=== PATIENT | female | born 1980 | race Caucasian/White ===

== ENCOUNTER 2021-02-12 17:22 | Emergency (ER) | payer OTHER ==
[~2021-02-12] VITALS: Ht 167.6 cm; Wt 90.9 kg
[2021-02-12 18:03] VITALS: BP 160/106
[2021-02-12] MEDS ORDERED: MELO15TA23 PO (20:18)
--- NOTE | 2021-02-12 20:18 | ED.ADGEN ---
Past Medical History Past Medical History: No Pertinent History Past Surgical History: No Surgical History Smoking Status: Current Every Day Smoker Alcohol Use: Occasionally General Adult EDM: Chief Complaint: SHOULDER INJURY HPI: HPI: Patient is a 40 year old female, accompanied by her family, who presents emergency department with complaints of intermittent right shoulder pain for the last year after an injury that occurred while working at [employer]. Patient states that over the last few days her pain has become more constant. She reports that the pain in her shoulder increases with movement, she denies any numbness, tingling, or weakness of the affected extremity. She currently rates pain 2 out of 10 on the pain scale, patient states that the pain increases whenever she moves her shoulder. She denies any alleviating factors. Review of Systems: Review of Systems: Complete ROS is negative unless otherwise noted in HPI. Allergies: Allergies: Allergies Coded Allergies Type Severity Reaction Last Updated Verified No Known Drug Allergies 02/12/21 No Physical Exam: PE: See Above Constitutional: Well developed, well nourished, no acute distress, non-toxic appearance. [] HENT: Normocephalic, atraumatic, bilateral external ears normal, nose normal. [] Eyes: PERRLA, EOMI, conjunctiva normal, no discharge. [] Neck: Normal range of motion, no stridor. [] Cardiovascular:Heart rate regular rhythm Lungs & Thorax: Respirations even and unlabored, no retractions, no respiratory distress Skin: Warm, dry, no erythema, no rash. [] Extremities: Right shoulder: No obvious deformity, no swelling, no cyanosis, ROM intact, patient complains of pain with ROM, no edema. [] Neurologic: Alert and oriented X 3, no focal deficits noted. [] Psychologic: Affect normal, judgement normal, mood normal. [] Current Patient Data: Vital Signs: Vital Signs Date Time Temp Pulse Resp B/P (MAP) Pulse Ox O2 Delivery O2 Flow Rate FiO2 02/12/21 18:03 97.9 87 20 160/106 (124) 97 Room Air 97.9 EKG: EKG: [] Heart Score: C/O Chest Pain: No Risk Scores: Score 0 - 3: 2.5% MACE over next 6 weeks - Discharge Home Score 4 - 6: 20.3% MACE over next 6 weeks - Admit for Clinical Observation Score 7 - 10: 72.7% MACE over next 6 weeks - Early Invasive Strategies Radiology/Procedures: Radiology/Procedures: PROCEDURE: SHOULDER 2+V RIGHT Right shoulder 3 views: Reason for examination: Right shoulder pain. No fracture or dislocation is seen. The bone density is normal. No abnormal periosteal reaction is seen. Joint spaces are maintained. IMPRESSION: No acute bony abnormality at the right shoulder. Electronically signed by: Shira Lee MD (02/12/2021 8:40 PM) [facility] [] Course & Med Decision Making: Course & Med Decision Making Pertinent Labs and Imaging studies reviewed. (See chart for details) [] Dragon Disclaimer: Dragon Disclaimer: This electronic medical record was generated, in whole or in part, using a voice recognition dictation system. Departure Departure Impression: Primary Impression: Pain in right shoulder Disposition: 01 HOME / SELF CARE / HOMELESS Condition: STABLE Referrals: CONRADO BOB MD Patient Instructions: Shoulder Pain, [id number] Additional Instructions: Fill prescription(s) and use as directed. Recommend application of ice, elevation, and rest of affected extremity. Follow-up with Dr. Bob for further evaluation of the intermittent pain. Return to the ER if your symptoms worsen. Scripts Meloxicam (MELOXICAM) 15 Mg Tablet 15 MG PO DAILY for 14 Days, #14 TAB 0 Refills Prov: VIKA HERNANDEZ APRN 02/12/21 Attending Signature Attending Signature I have participated in the care of this patient and I have reviewed and agree with all pertinent clinical information above including history, exam, and recommendations. Problem Qualifiers Primary Impression: Pain in right shoulder Chronicity: unspecified Qualified Codes: M25.511 - Pain in right shoulder VIKA HERNANDEZ APRN Feb 12, 2021 20:18 GILDARDO SIMON MD Feb 13, 2021 04:56
--- NOTE | 2021-02-12 20:42 | RAD ---
Right shoulder 3 views: Reason for examination: Right shoulder pain. No fracture or dislocation is seen. The bone density is normal. No abnormal periosteal reaction is se en. Joint spaces are maintained. IMPRESSION: No acute bony abnormality at the right shoulder. Electronically signed by: Shira Lee MD (02/12/2021 8:40 PM) [facility]
== END 2021-02-12 20:20 | disposition home or self-care (01) ==
LOC: ER 17:22
DX: M25.511 Pain in right shoulder (principal); F17.200 Nicotine dependence, unspecified, uncomplicated
CPT/HCPCS: 73030; 99283

== ENCOUNTER → 2021-03-03 | Outpatient (CLI) | payer OTHER ==
[2021-02-12 18:03] VITALS: BP 160/106
[~2021-03-03] MED LIST: MELO15TA23 PO
--- NOTE | 2021-03-03 12:17 | KCIC ---
Examination: MRI of the right shoulder without contrast HISTORY: History of tear of the rotator cuff ,Chronic pain COMPARISON: None available Technique: Multiplanar, multisequence MR imaging of the right shoulder performed without contrast FINDINGS: The long head of the biceps tendon within the bicipital groove. The attachment of the long head the b iceps tendon to the superior labral anchor grossly appears intact. The attachment of subscapularis te ndon grossly appears intact. There is full-thickness tear of the supraspinatus tendon measuring 9 mm in transverse dimension with extension of fluid in the subacromial subdeltoid bursa. Moderate increas ed signal identified in the supraspinatus, infraspinatus tendon likely tendinosis. The visualized labrum grossly appears unremarkable. The acromion is type II. The muscle bulk grossly appears unremarkable. Fat is present within the rotator interval. Mild degenerative changes acromioclavicular joint, glenohumeral joint. IMPRESSION: 1. Full-thickness tear of the supraspinatus tendon with extension of fluid in the subacromial subdel toid bursa. 2. Moderate tendinosis of the supraspinatus, infraspinatus tendon. Electronically signed by: Renzo Beavers MD (03/03/2021 12:14 PM) [id number]
== END ==
LOC: KCIC MRI 10:40
PROVIDERS: ATTEND Physician Assistant
DX: M19.011 Primary osteoarthritis, right shoulder (principal); M75.121 Complete rotator cuff tear or rupture of right shoulder, not specified as traumatic
CPT/HCPCS: 73221

== ENCOUNTER 2021-05-19 06:35 | Day surgery (SDC) | payer OTHER ==
[~2021-05-19] VITALS: Ht 167.6 cm; Wt 102.0 kg
[~2021-05-19 06:35] MED LIST changes: +DICL20GE TP; +FAMO40TA4 PO; +HYDR-2761 PO; +HYDROmorphone 2 MG/ML VIAL IVP PRN; +IV RINGERS,LACTATED 1000ML 1,000 ML IV SCH; +LISI-130 PO; +LOSA25TA54 PO; +MORPHINE SULFATE 2 MG/ML INJ. IVP PRN; +PROCHLORPERAZINE 10 MG/2 ML VIAL. IVP PRN; +fentaNYL PF VIAL 100 MCG/2 ML VIAL IVP PRN
[2021-05-19] MEDS ORDERED: ceFAZolin 2GM PREMIX 2 GM/50 ML BAG IV ONE (07:00)
[2021-05-19] MEDS ORDERED: BUPIVACAINE MPF 0.5% 30 ML VIAL. ONE (07:17)
[2021-05-19] MEDS ORDERED: MIDAZOLAM HCL/PF 2 MG/2 ML VIAL. ONE (07:17)
[2021-05-19] MEDS ORDERED: DEXAMETHASONE SOD PHOS 20 MG/5 ML VIAL. ONE (07:17)
[2021-05-19] MEDS ORDERED: LIDOCAINE 2% PF 5 ML VIAL. ONE ×2 (07:18→08:38)
[2021-05-19] MEDS ORDERED: EPINEPHrine 1 MG/ML VIAL ONE (07:18)
[2021-05-19] MEDS ORDERED: OXYC1TAB19 PO (07:19)
--- NOTE | 2021-05-19 07:24 | DISCH ---
DISCHARGE INSTRUCTIONS Condition on Discharge Condition on Discharge: Stable Activity After Discharge Activity Instructions for Disc: Other, see below (No actively lifting right elbow away from the side. May use hand for fine motor use but no lifting pushing or pulling, passive movement okay with therapy or with the other arm) Lifting Instructions after Dis: No heavy lifting, No pulling or pushing Weight Bearing Status after Di: Non weight bearing Diet after Discharge Diet after Discharge: Regular Wound Incision Care Wound/Incision Care: Change dressing (Remove dressing in 2 days may then shower no soaking until sutures removed) Community/Resources/Services Services at Discharge: PT EVALUATE & TREAT (Passive range of motion of right shoulder only for 1 month postoperatively) Contacting the DRJose after DC Call your doctor for: Concerns you may have Follow-Up Follow up with: Dr. Byrd or Garry 10 days CHAZ BYRD MD May 19, 2021 07:24
[2021-05-19] MEDS ORDERED: DEXAMETHASONE SOD PHOS 4 MG/ML VIAL ONE (08:38)
[2021-05-19] MEDS ORDERED: ONDANSETRON PF 4 MG/2 ML VIAL. ONE (08:38)
[2021-05-19] MEDS ORDERED: PROPOFOL 10 MG/ML (20ML) VIAL. IV ONE (08:38)
[2021-05-19] MEDS ORDERED: EPINEPHrine VIAL 30 MG/30 ML VIAL ONE (08:49)
[2021-05-19] MEDS ORDERED: fentaNYL PF VIAL 100 MCG/2 ML VIAL ONE ×2 (09:01→09:19)
[2021-05-19 11:25] VITALS: BP 160/90
--- NOTE | 2021-05-19 16:16 | PDOC4 ---
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 Postoperative diagnosis: Same with full-thickness distal supraspinatus tear Operative procedure: Right shoulder arthroscopy arthroscopic rotator cuff repair subacromial decompression distal clavicle excision Surgeon: Carson Assist: Pato jean assist Anesthesia: General plus scalene block Estimated blood loss: 10 cc Complications: None Operative indications: Please see my preoperative clinic notes for detailed operative indications and note that we had covered the additional rationale today for distal clavicle excision given the persistent acromioclavicular joint pain as well as the full-thickness rotator cuff tear shown on MRI. We covered the possibility of continued pain nonhealing infection nerve or blood vessel damage medical or other anesthetic complications among others and she wishes to proceed with surgical evaluation and treatment Operative text: Patient was identified procedure verified patient placed in the supine position on the operating table. After adequate amounts of general anesthesia plus a pre-existing scalene block were obtained she was placed in the decubitus position right side up all bony promises were well-padded shoulder was found to have full range of motion and no instability. The right shoulder was then prepped and draped in standard sterile fashion and placed in the arthroscopic arm butterfield with a total of 10 pounds of traction. After timeout was performed patient procedure identified and verified a standard posterior portal was established an anterior portal established using spinal needle localization and the shoulder joint was systematically examined. She was noted to have some fraying of the superior labrum which was debrided back to stable tissue biceps anchor and biceps tendon itself were intact without evidence of subluxation. She did have a full-thickness tear of the distal supraspinatus normal bare area of the humerus and normal capsuloligamentous structures with good preservation of the articular cartilage. Subacromial space was then entered bursa was cleared to allow visualization and the full-thickness distal supraspinatus tear was verified. The anterior acromial spur was converted to a type I acromion using an arthroscopic bur with cutting block technique. The narrowed arthritic acromioclavicular joint was verified and distal clavicle excision carried out to 1 cm preserving the overlying joint capsule for stability. Bony fragments were removed with the arthroscopic shaver and the rotator cuff footprint was debrided back to stable bleeding tissue and a total of 2 double loaded 2.9 juggernaut [employer] anchors were placed and sutures placed in a simple fashion and anchored laterally with a [facility] lateral row anchor with excellent watertight repair verified in all degrees of internal/external rotation. Shoulder joint was drained of arthroscopic fluid portals were closed with nylon suture. Sterile dressings were applied and immobilizer was placed and patient was returned to recovery room in stable condition having tolerated the procedure well. Pato cunningham was present for the procedure assisted in patient positioning prepping draping suture management closure and dressings CHAZ MARRERO MD May 19, 2021 16:16
== END 2021-05-19 12:00 | disposition home or self-care (01) ==
LOC: SURG 06:35
PROVIDERS: ATTEND Orthopaedic Surgery
DX: M19.011 Primary osteoarthritis, right shoulder (principal); S46.011A Strain of muscle(s) and tendon(s) of the rotator cuff of right shoulder, initial encounter; K21.9 Gastro-esophageal reflux disease without esophagitis; I10 Essential (primary) hypertension; F17.210 Nicotine dependence, cigarettes, uncomplicated; Z79.899 Other long term (current) drug therapy; Z98.890 Other specified postprocedural states; X58.XXXA Exposure to other specified factors, initial encounter; Y93.89 Activity, other specified; Y92.89 Other specified places as the place of occurrence of the external cause; Y99.8 Other external cause status; Z72.89 Other problems related to lifestyle
CPT/HCPCS: 29826; 29827; 64415; 81025; A4565; A4930; C1713; J0171; J0690; J1100; J2250; J2405; J2704; J3010; J3490